=== PATIENT | male | born 1930 | race Caucasian/White ===

== ENCOUNTER 2016-10-17 20:42 | Emergency (ER) | payer MEDICARE, BC ==
--- NOTE | 2016-10-17 20:56 | ER Document Report ---
ED Medical Screen (RME) - General Stated Complaint: FALL BACK PAIN Mode of Arrival: Medic Information source: Emergency Med Personnel Notes: Patient presents to the emergency department after falling down 5 carpeted stairs 1 hour ago. No change in LOC. Abrasion to top of scalp, behind ear, left elbow. Reports right rib pain. Denies vomiting. I have greeted and performed a rapid initial assessment of this patient. A comprehensive ED assessment and evaluation of the patient, analysis of test results and completion of the medical decision making process will be conducted by additional ED providers. TRAVEL OUTSIDE OF THE [place] IN LAST 30 DAYS: No - Related Data Allergies/Adverse Reactions: erythromycin base [From Erythrocin] Allergy (Verified 06/11/16 08:39) rash Efcicuw-Kzb-Cqu Reductase Inhibitor Adverse Reaction (Intermediate, Verified 11/22 14:36) Stiffness in joints Past Medical History - Past Medical History Cardiac Medical History: Reports: Hx Coronary Artery Disease, Hx Hypertension Denies: Hx DVT, Hx Heart Attack, Hx Hypercholesterolemia, Hx Peripheral Vascular Disease, Hx Pulmonary Embolism Pulmonary Medical History: Denies: Hx Asthma, Hx COPD Neurological Medical History: Denies: Hx Cerebrovascular Accident, Hx Seizures Endocrine Medical History: Denies: Hx Diabetes Mellitus Type 1, Hx Diabetes Mellitus Type 2, Hx Hyperthyroidism, Hx Hypothyroidism Malignancy Medical History: Reports Hx Prostate Cancer - Radiation treatment in past GI Medical History: Reports: Hx Gastroesophageal Reflux Disease. Denies: Hx Cirrhosis, Hx Hepatitis, Hx Hiatal Hernia, Hx Ulcer Musculoskeltal Medical History: Denies Hx Arthritis Psychiatric Medical History: Denies: Hx Depression Infectious Medical History: Denies: Hx Hepatitis Past Surgical History: Reports: Hx Coronary Artery Bypass Graft, Hx Open Heart Surgery - 7 BYPASS, Hx Tonsillectomy. Denies: Hx Pacemaker - Immunizations Hx Diphtheria, Pertussis, Tetanus Vaccination: Yes
[2016-10-17] MEDS ORDERED: MORPHINE SULFATE 10 MG/ML INJ IV ONE (22:41)
--- NOTE | 2016-10-17 22:46 | ER Document Report ---
ED General - General Chief Complaint: Fall Injury Stated Complaint: FALL BACK PAIN Mode of Arrival: Medic Information source: Patient, Relative Notes: 85 yr old male presents with complaints of fall down 5 steps of stairs striking his head , right chest wall and back. Pt denies any fevers or chills, denies any sob but admits it hurts ot take a deep breath. TRAVEL OUTSIDE OF THE [place] IN LAST 30 DAYS: No - HPI Onset: Just prior to arrival Onset/Duration: Sudden Quality of pain: Achy Severity: Mild Pain Level: 1 Associated symptoms: Body/muscle aches, Hurts to breath Exacerbated by: Deep breathing Relieved by: Denies Similar symptoms previously: Yes Recently seen / treated by doctor: Yes - Related Data Allergies/Adverse Reactions: erythromycin base [From Erythrocin] Allergy (Verified 06/11/16 08:39) rash Zkouubh-Qck-Mgg Reductase Inhibitor Adverse Reaction (Intermediate, Verified 11/22 14:36) Stiffness in joints Past Medical History - General Information source: Emergency Med Personnel - Social History Smoking Status: Never Smoker Cigarette use (# per day): No Chew tobacco use (# tins/day): No Smoking Education Provided: No Frequency of alcohol use: None Drug Abuse: None Family History: Reviewed & Not Pertinent Patient has suicidal ideation: No Patient has homicidal ideation: No - Past Medical History Cardiac Medical History: Reports: Hx Coronary Artery Disease, Hx Hypertension Denies: Hx DVT, Hx Heart Attack, Hx Hypercholesterolemia, Hx Peripheral Vascular Disease, Hx Pulmonary Embolism Pulmonary Medical History: Denies: Hx Asthma, Hx COPD Neurological Medical History: Denies: Hx Cerebrovascular Accident, Hx Seizures Endocrine Medical History: Denies: Hx Diabetes Mellitus Type 1, Hx Diabetes Mellitus Type 2, Hx Hyperthyroidism, Hx Hypothyroidism Renal/ Medical History: Denies: Hx Peritoneal Dialysis Malignancy Medical History: Reports Hx Prostate Cancer - Radiation treatment in past GI Medical History: Reports: Hx Gastroesophageal Reflux Disease. Denies: Hx Cirrhosis, Hx Hepatitis, Hx Hiatal Hernia, Hx Ulcer Musculoskeltal Medical History: Denies Hx Arthritis Psychiatric Medical History: Denies: Hx Depression Infectious Medical History: Denies: Hx Hepatitis Past Surgical History: Reports: Hx Coronary Artery Bypass Graft, Hx Open Heart Surgery - 7 BYPASS, Hx Tonsillectomy. Denies: Hx Pacemaker - Immunizations Hx Diphtheria, Pertussis, Tetanus Vaccination: Yes Hx Pneumococcal Vaccination: 05/09/13 Review of Systems - Review of Systems Notes: REVIEW OF SYSTEMS: CONSTITUTIONAL : Denies fever, chills, or sweats. Denies recent illness. EENT: Denies eye, ear, throat, or mouth pain or symptoms. Denies nasal or sinus congestion or discharge. Denies throat, tongue, or mouth swelling or difficulty swallowing. CARDIOVASCULAR: Denies chest pain. Denies palpitations or racing or irregular heart beat. Denies ankle edema. RESPIRATORY: Admits to pain with breathing GASTROINTESTINAL: Denies abdominal pain or distention. Denies nausea, vomiting , or diarrhea. Denies blood in vomitus, stools, or per rectum. Denies black, tarry stools. Denies constipation. GENITOURINARY: Denies difficulty urinating, painful urination, burning, frequency, blood in urine, or discharge. MUSCULOSKELETAL: Denies back or neck pain or stiffness. Denies joint pain or swelling. SKIN: Denies rash, lesions or sores. HEMATOLOGIC : Denies easy bruising or bleeding. LYMPHATIC: Denies swollen, enlarged glands. NEUROLOGICAL: Denies confusion or altered mental status. Denies passing out or loss of consciousness. Denies dizziness or lightheadedness. Denies headache. Denies weakness or paralysis or loss of use of either side. Denies problems with gait or speech. Denies sensory loss, numbness, or tingling. Denies seizures. PSYCHIATRIC: Denies anxiety or stress. Denies depression, suicidal ideation, or homicidal ideation. ALL OTHER SYSTEMS REVIEWED AND NEGATIVE. Dictation was performed using [employer] voice recognition software PHYSICAL EXAMINATION: GENERAL: Well-appearing, well-nourished and in no acute distress. C collar in place. On backboard. GCS 15 HEAD abrasions to scalp and right posterior auricular EYES: Pupils equal round and reactive to light, extraocular movements intact, sclera anicteric, conjunctiva are normal. ENT: Nares patent, oropharynx clear without exudates. Moist mucous membranes. No hemanotympanum . No blood in nares. No dental fracture NECK: Normal range of motion, supple without lymphadenopathy. Trachea midline LUNGS: Breath sounds clear to auscultation bilaterally and equal. No wheezes rales or rhonchi. Tenderness on palpation of the right posterior rib brown 4 through 12 HEART: Regular rate and rhythm without murmurs. Pulses intact all throughout. ABDOMEN: Soft, nontender, nondistended abdomen. No guarding, no rebound. No masses appreciated. Musculoskeletal: Normal range of motion, no pitting or edema. No cyanosis. Hip non tender, stable. NEUROLOGICAL: Cranial nerves grossly intact. Normal speech, normal gait. Normal sensory, motor, and reflex exams. PSYCH: Normal mood, normal affect. SKIN: Warm, No active bleeding Physical Exam - Vital signs Vitals: Temp Pulse Resp BP Pulse Ox 98.7 F 64 20 172/75 H 98 10/17/16 20:52 10/17/16 20:52 10/17/16 20:52 10/17/16 20:52 10/17/16 20:52 Course - Re-evaluation Re-evalutation: 10/17/16 22:45 Given the patient multiple rib fractures, I did contact [facility] for a trauma transfer, patient was accepted by Dr. Nagy CT has been ordered to evaluate for any other injuries - Vital Signs Vital signs: Temp Pulse Resp BP Pulse Ox 98.7 F 64 20 172/75 H 98 10/17/16 20:52 10/17/16 20:52 10/17/16 20:52 10/17/16 20:52 10/17/16 20:52 - Diagnostic Test Radiology reviewed: Image reviewed, Reports reviewed - Report given to patient Critical Care Note - Critical Care Note Total time excluding time spent on procedures (mins): 34 Comments: 34 minutes of critical care time spent in direct contact evaluating and reevaluating the patient, treating symptoms, reviewing labs and studies and speaking with family and consultants excluding any procedures Discharge - Discharge Clinical Impression: Prostate cancer metastatic to bone, Multiple rib fractures involving four or more ribs Condition: Stable Disposition: [facility]
[2016-10-17 23:45] LABS: ABSOLUTE EOSINOPHILS # (AUTO) 0.1 10^3/uL (0.0-0.6); ABSOLUTE LYMPHOCYTES (AUTO) 2.4 10^3/uL (0.5-4.7); ABSOLUTE NEUT (AUTO) 11.5 10^3/uL (1.7-8.2); BASOPHILS % (AUTO) 0.2 % (0-2); EOSINOPHILS % (AUTO) 0.9 % (0-6); HEMATOCRIT 39.7 % (37.9-51.0); HEMOGLOBIN 13.2 g/dL (13.5-17.0); HGB HCT DIFFERENCE -0.1; LYMPHOCYTES % (AUTO) 15.7 % (13-45); MEAN CORPUSCULAR HEMOGLOBIN 30.4 pg (27.0-33.4); MEAN CORPUSCULAR HGB CONC 33.3 g/dL (32.0-36.0); MEAN CORPUSCULAR VOLUME 91 fl (80-97); MONOCYTES % (AUTO) 6.5 % (3-13); RED BLOOD COUNT 4.35 10^6/uL (4.35-5.55); RED CELL DISTRIBUTION WIDTH 14.1 % (11.5-14.0); SEGMENTED NEUTROPHILS % (AUTO) 76.7 % (42-78)
[2016-10-17 23:48] LABS: ALANINE AMINOTRANSFERASE 32 U/L (21-72); ALBUMIN 4.6 g/dL (3.5-5.0); ALKALINE PHOSPHATASE 47 U/L (38-126); ANION GAP 10 (5-19); ASPARTATE AMINO TRANSFERASE 30 U/L (17-59); BILIRUBIN,TOTAL 0.6 mg/dL (0.2-1.3); BLOOD UREA NITROGEN 16 mg/dL (7-20); CARBON DIOXIDE 30 mmol/L (22-30); CHLORIDE 101 mmol/L (98-107); CREATININE RESULT 0.84 mg/dL (0.52-1.25); GLUCOSE 165 mg/dL (75-110); POTASSIUM 4.8 mmol/L (3.6-5.0); SODIUM 141.3 mmol/L (137-145); TOTAL PROTEIN 7.5 g/dL (6.3-8.2)
[2016-10-18] MEDS ORDERED: METOPROLOL SUCCINATE 25 MG TAB.SR.24H PO ONE (00:34)
[2016-10-18 03:05] VITALS: BP 170/65
== END 2016-10-18 03:10 | disposition short-term general hospital (02) ==
LOC: ER 20:42
DX: C61 Malignant neoplasm of prostate (principal); C79.51 Secondary malignant neoplasm of bone; S22.49XA Multiple fractures of ribs, unspecified side, initial encounter for closed fracture; M54.9 Dorsalgia, unspecified; M79.1 Myalgia; R06.00 Dyspnea, unspecified; W10.9XXA Fall (on) (from) unspecified stairs and steps, initial encounter; I25.10 Atherosclerotic heart disease of native coronary artery without angina pectoris; I10 Essential (primary) hypertension; K21.9 Gastro-esophageal reflux disease without esophagitis; Z95.1 Presence of aortocoronary bypass graft; Z88.3 Allergy status to other anti-infective agents
CPT/HCPCS: 99291; 96374; 36415; 85025; 80053; 73502; 71101; 70450; 71260; 72125; 74177; J2270; A9270

== ENCOUNTER 2017-11-02 14:11 | Emergency (ER) | payer MEDICARE, BC ==
--- NOTE | 2017-11-02 14:51 | ER Document Report ---
ED Dizziness/Weakness - General Mode of Arrival: Medic Information source: Patient, Friend TRAVEL OUTSIDE OF THE [place] IN LAST 30 DAYS: No <DOREEN MICHAUD - Last Filed: 11/03/17 00:01> <EMMANUEL PACHECO - Last Filed: 11/03/17 00:30> - General Chief Complaint: Weakness Stated Complaint: WEAKNESS Time Seen by Provider: 11/02/17 14:23 Notes: Patient is an 86 year old male with a history of prostate cancer and anemia presents to the emergency department via EMS complaining of multiple symptoms including weakness, lower abdominal pain, dysuria, and bilateral lower extremity swelling. Patient states that he feels like he has absolutely no energy which is abnormal for him. Patient also states that he has been unable to urinate. Patient further states when he was able to use the restroom, he had a burning sensation and urinated around 4-5 ounces of blood. Patient abdominal pain is exacerbated with sitting up. Patient denies chest pain, shortness of breath, nausea, vomiting, or diarrhea. Patient states his last radiation treatment was 1 month ago and does not remember his last chemo treatment. Patient's PCP is Dr. Mancera in [place] and his oncologist is Dr. Luna at [facility]. (DOREEN MICHAUD) - Related Data Allergies/Adverse Reactions: erythromycin base [From Erythrocin] Allergy (Verified 06/11/16 08:39) rash Kdmjceb-Alg-Gsx Reductase Inhibitor Adverse Reaction (Intermediate, Verified 11/22 14:36) Stiffness in joints Past Medical History - General Information source: Patient, Friend - Social History Smoking Status: Unknown if Ever Smoked Family History: Reviewed & Not Pertinent - Past Medical History Cardiac Medical History: Reports: Hx Coronary Artery Disease, Hx Hypertension Malignancy Medical History: Reports Hx Prostate Cancer - Radiation treatment in past GI Medical History: Reports: Hx Gastroesophageal Reflux Disease Past Surgical History: Reports: Hx Coronary Artery Bypass Graft, Hx Open Heart Surgery - 7 BYPASS, Hx Tonsillectomy - Immunizations Hx Diphtheria, Pertussis, Tetanus Vaccination: Yes Hx Pneumococcal Vaccination: 05/09/13 <DOREEN MICHAUD - Last Filed: 11/03/17 00:01> Review of Systems - Review of Systems Constitutional: See HPI, Weakness EENT: No symptoms reported Cardiovascular: No symptoms reported Respiratory: No symptoms reported Gastrointestinal: See HPI Genitourinary: See HPI, Burning, Dysuria, Retention Male Genitourinary: No symptoms reported Musculoskeletal: No symptoms reported Skin: No symptoms reported Hematologic/Lymphatic: No symptoms reported Neurological/Psychological: No symptoms reported -: Yes All other systems reviewed and negative <DOREEN MICHAUD - Last Filed: 11/03/17 00:01> - Vital signs Vitals: Resp 19 11/02/17 14:33 - Notes Notes: GENERAL: Eyes closed when walking into the room, awakens, questions easily. Appears fatigued. HEAD: Normocephalic, atraumatic. EYES: Pupils equal, round, and reactive to light. Extraocular movements intact. ENT: Oral mucosa moist, tongue midline. NECK: Full range of motion. Supple. Trachea midline. LUNGS: Rales [address] up lung zones. No respiratory distress. HEART: 2/6 systolic murmur. Regular rate and rhythm. No gallops or rubs. ABDOMEN: Soft, non-tender. Distended lower abdomen which is tender to palpation , consistent with urinary retention. Bowel sounds present in all 4 quadrants. EXTREMITIES: Moves all 4 extremities spontaneously. 4+ pitting edema to just below the knees, no exudate, no fluctuance. NEUROLOGICAL: Alert and oriented x3. Normal speech. PSYCH: Appears fatigued. SKIN: Pale, warm, dry normal turgor. (DOREEN MICHAUD) Course - Laboratory Result Diagrams: 11/02/17 14:26 11/02/17 14:26 <DOREEN MICHAUD - Last Filed: 11/03/17 00:01> - Laboratory Result Diagrams: 11/02/17 14:26 11/02/17 14:26 <EMMANUEL PACHECO - Last Filed: 11/03/17 00:30> - Re-evaluation Re-evalutation: 11/02/17 18:24 patient had distended urinary bladder which was relieved by insertion of a Villanueva catheter, there was some difficulty in placing the catheter, initially bloody urine with some clots came out and urine is now starting to clear, abdominal distention has resolved, patient feels much better, looks much more comfortable. CBC shows anemia with hemoglobin of 8.7, no leukocytosis, INR somewhat prolonged at 1.12 and PTT is elevated at 44.1, chemistries grossly unremarkable, proBNP elevated at 1040 however he is not acutely short of breath , complaining of any chest pain, chest x-ray shows no pulmonary edema and he is not hypoxic. Cardiac enzymes negative, urinalysis shows large blood, 1+ bacteria, 8 WBCs. Urinalysis appears more consistent with colonization rather than infection. Discussed with patient that he has a follow-up appointment with his urologist tomorrow, there is some sign of fluid overload though no overt heart failure at this time. Patient will be given a small dose of Lasix here through the IV and then sent home on Lasix 20 mg once a day for the next week, he is to weigh himself daily and follow-up with his primary care physician within a week. Return to the emergency department for increase in blood in the Villanueva catheter, increasing fatigue or any new or concerning symptoms. Patient and family members at bedside are agreeable to this plan. Patient aware that should his bleeding continue or worsen he may need a blood transfusion. (EMMANUEL PACHECO) - Vital Signs Vital signs: Temp Pulse Resp BP Pulse Ox 98.0 F 21 H 131/49 H 97 11/02/17 18:51 11/02/17 18:01 11/02/17 18:01 11/02/17 18:01 - Laboratory Laboratory results interpreted by me: 11/02/17 11/02/17 11/02/17 14:26 14:26 14:26 RBC 2.86 L Hgb 8.7 L Hct 25.8 L RDW 14.8 H APTT 44.1 H Sodium 135.1 L BUN 25 H Glucose 146 H NT-Pro-B Natriuret Pep Urine Protein Urine Blood Urine Ascorbic Acid 11/02/17 11/02/17 14:26 15:46 RBC Hgb Hct RDW APTT Sodium BUN Glucose NT-Pro-B Natriuret Pep 1040 H Urine Protein 100 H Urine Blood LARGE H Urine Ascorbic Acid 40 H - EKG Interpretation by Me Additional EKG results interpreted by me: 11/02/17 18:25 EKG shows sinus rhythm rate 65, first-degree AV block, no ST segment elevations or depressions, nonspecific T-wave flattening in lead I, T-wave inversion in aVL and V2, 2 PVCs which are monomorphic per my interpretation. (EMMANUEL PACHECO) Discharge <DOREEN MICHAUD - Last Filed: 11/03/17 00:01> <EMMANUEL PACHECO - Last Filed: 11/03/17 00:30> - Discharge Clinical Impression: Acute urinary retention, Prostate cancer Anemia Qualifiers: Anemia type: unspecified type Qualified Code(s): D64.9 - Anemia, unspecified Hematuria Qualifiers: Hematuria type: gross Qualified Code(s): R31.0 - Gross hematuria Fluid overload Qualifiers: Hypervolemia type: unspecified Qualified Code(s): E87.70 - Fluid overload, unspecified Condition: Stable Disposition: HOME, SELF-CARE Additional Instructions: Please leave a Villanueva catheter in until you have been seen by your urologist. If you start developing large amounts of blood coming out of the catheter again please return to the emergency department. I have started you on a medication called Lasix also known as furosemide, this will help you to hopefully urinate off some of the fluid that you have been building up in your legs and the small amount of fluid that is in your lungs. Please return to the emergency department should you develop chest pain, shortness of breath, increasing weakness or any new or concerning symptoms. Please weigh yourself every day and write this down, please talk to your primary care physician about how you feel after starting the Lasix and watch her weights have been. Prescriptions: Furosemide [Lasix 20 mg Tablet] 20 mg PO QAM #7 tablet Referrals: RAQUEL MANCERA MD [Primary Care Provider] - Follow up in 1 week Scribe Attestation: 11/03/17 00:29 I personally performed the services described in the documentation, reviewed and edited the documentation which was dictated to the scribe in my presence, and it accurately records my words and actions. (EMMANUEL PACHECO) Scribe Documentation - Scribe Written by Derek:: Derek Conrad, 11/02/2017 14:56 acting as scribe for :: Silvestre <DOREEN MICHAUD - Last Filed: 11/03/17 00:01>
[2017-11-02] MEDS ORDERED: LIDOCAINE 2% URO-JET 5 ML KIT MM ONE (14:56)
[2017-11-02 15:36] LABS: ABSOLUTE EOSINOPHILS # (AUTO) 0.1 10^3/uL (0.0-0.6); ABSOLUTE MONOCYTES (AUTO) 0.7 10^3/uL (0.1-1.4); ABSOLUTE NEUT (AUTO) 5.8 10^3/uL (1.7-8.2); BASOPHILS % (AUTO) 0.2 % (0-2); EOSINOPHILS % (AUTO) 1.5 % (0-6); HEMATOCRIT 25.8 % (37.9-51.0); HEMOGLOBIN 8.7 g/dL (13.5-17.0); INTERNATIONAL RATION (INR) 1.12; LYMPHOCYTES % (AUTO) 13.4 % (13-45); MEAN CORPUSCULAR HEMOGLOBIN 30.4 pg (27.0-33.4); MEAN CORPUSCULAR HGB CONC 33.7 g/dL (32.0-36.0); MEAN CORPUSCULAR VOLUME 90 fl (80-97); PLATELET COUNT 205 10^3/uL (150-450); PROTHROMBIN TIME 15.2 SEC (11.4-15.4); RED BLOOD COUNT 2.86 10^6/uL (4.35-5.55); RED CELL DISTRIBUTION WIDTH 14.8 % (11.5-14.0); SEGMENTED NEUTROPHILS % (AUTO) 75.9 % (42-78); TOTAL CELLS COUNTED % (AUTO) 100 %; WHITE BLOOD COUNT 7.7 10^3/uL (4.0-10.5)
[2017-11-02 15:37] LABS: ALANINE AMINOTRANSFERASE 24 U/L (21-72); ALBUMIN 3.8 g/dL (3.5-5.0); ALKALINE PHOSPHATASE 123 U/L (38-126); ANION GAP 8 (5-19); ASPARTATE AMINO TRANSFERASE 55 U/L (17-59); BILIRUBIN,DIRECT 0.4 mg/dL (0.0-0.4); BILIRUBIN,TOTAL 0.4 mg/dL (0.2-1.3); BLOOD UREA NITROGEN 25 mg/dL (7-20); CALCIUM 8.6 mg/dL (8.4-10.2); CARBON DIOXIDE 27 mmol/L (22-30); CHLORIDE 100 mmol/L (98-107); CREATINE KINASE 165 U/L (55-170); GLUCOSE 146 mg/dL (75-110); PARTIAL THROMBOPLASTIN TIME 44.1 SEC (23.5-35.8); POTASSIUM 4.9 mmol/L (3.6-5.0); SODIUM 135.1 mmol/L (137-145); TOTAL PROTEIN 6.4 g/dL (6.3-8.2)
[2017-11-02 15:48] LABS: CREATINE KINASE MB 1.87 ng/mL (<4.55); NT PRO BNP 1040 pg/mL (<450)
[2017-11-02 15:49] LABS: TROPONIN I < 0.012 ng/mL
--- NOTE | 2017-11-02 15:51 | RADIOLOGY REPORT (SQ) ---
EXAM DESCRIPTION: CHEST PA/LAT COMPLETED DATE/TIME: 11/02/2017 3:31 pm REASON FOR STUDY: crackles, rales, suspect pulmonary edema COMPARISON: 06/10/2016 EXAM PARAMETERS: NUMBER OF VIEWS: two views TECHNIQUE: Digital Frontal and Lateral radiographic views of the chest acquired. RADIATION DOSE: NA LIMITATIONS: none FINDINGS: LUNGS AND PLEURA: No opacities, masses or pneumothorax. No pleural effusion. MEDIASTINUM AND HILAR STRUCTURES: No masses or contour abnormalities. HEART AND VASCULAR STRUCTURES: Heart normal size. No evidence for failure. BONES: Old right posterior rib fractures. HARDWARE: CABG. OTHER: No other significant finding. IMPRESSION: NO ACUTE RADIOGRAPHIC FINDING IN THE CHEST. TECHNICAL DOCUMENTATION: JOB ID: [id number] [employer]- All Rights Reserved Reading location - IP/workstation name: [email or web address]
[2017-11-02 16:28] LABS: AMORPHOUS SEDIMENT,URINE TRACE /HPF; APPEARANCE,URINE SLIGHTLY-CLOUDY; BILIRUBIN,URINE NEGATIVE (NEGATIVE); COLOR,URINE AMBER; GLUCOSE, URINE NEGATIVE (NEGATIVE); KETONES,URINE NEGATIVE (NEGATIVE); LEUKOCYTE ESTERASE,URINE NEGATIVE (NEGATIVE); NITRITE,URINE NEGATIVE (NEGATIVE); PROTEIN,URINE 100 mg/dL (NEGATIVE); UROBILINOGEN,URINE NEGATIVE mg/dL (<2.0)
--- NOTE | 2017-11-02 17:24 | EKG REPORT ---
SEVERITY:- ABNORMAL ECG - SINUS RHYTHM MULTIPLE VENTRICULAR PREMATURE COMPLEXES FIRST DEGREE AV BLOCK BORDERLINE T ABNORMALITIES, ANT-LAT LEADS : Confirmed by: Guillermo Garcia MD 02-Nov-2017 17:24:09
[2017-11-02] MEDS ORDERED: FUROSEMIDE INJ/PF 20 MG/2 ML SDV IV ONE (18:09)
[2017-11-02 18:36] VITALS: BP 131/49
== END 2017-11-02 19:01 | disposition home or self-care (01) ==
LOC: ER 14:11
DX: C61 Malignant neoplasm of prostate (principal); R33.9 Retention of urine, unspecified; D64.9 Anemia, unspecified; R53.1 Weakness; R10.30 Lower abdominal pain, unspecified; R30.0 Dysuria; M79.89 Other specified soft tissue disorders; R31.0 Gross hematuria; E87.70 Fluid overload, unspecified; I44.0 Atrioventricular block, first degree; I49.3 Ventricular premature depolarization; I25.10 Atherosclerotic heart disease of native coronary artery without angina pectoris; I10 Essential (primary) hypertension; Z95.1 Presence of aortocoronary bypass graft; Z88.1 Allergy status to other antibiotic agents
CPT/HCPCS: 93005; 99285; 51702; 96374; 36415; 87086; 82553; 82550; 85025; 85610; 85730; 80053; 81001; 84484; 83880; 71046; 93010; J1940

== ENCOUNTER 2017-12-11 11:33 | Emergency (ER) | payer MEDICARE, BC ==
--- NOTE | 2017-12-11 12:17 | ER Document Report ---
ED GI/ - General Chief Complaint: Problem with Urinary Catheter Stated Complaint: CATHETER ISSUES Time Seen by Provider: 12/11/17 11:54 Notes: 87-year-old male to emergency department chief complaint of urinary obstruction. Has Villanueva catheter in place. Had a change last night and has not been able to urinate since that time. Has been complaining of pain since the catheter was replaced by home health nurse. Patient suffers from metastatic prostate cancer on hospice. The patient denies any other complaints at this time. TRAVEL OUTSIDE OF THE [place] IN LAST 30 DAYS: No - HPI Patient complains to provider of: Dysuria, Urinary retention Onset: Yesterday - Related Data Allergies/Adverse Reactions: erythromycin base [From Erythrocin] Allergy (Verified 12/11/17 11:36) rash Fcjxwms-Ibu-Ubu Reductase Inhibitor Adverse Reaction (Intermediate, Verified 12/24 11:36) Stiffness in joints Past Medical History - General Information source: Patient, [facility] Records - Social History Smoking Status: Never Smoker Cigarette use (# per day): No Frequency of alcohol use: None Drug Abuse: None Lives with: Family Family History: Reviewed & Not Pertinent - Past Medical History Cardiac Medical History: Reports: Hx Coronary Artery Disease, Hx Hypertension Denies: Hx DVT, Hx Heart Attack, Hx Hypercholesterolemia, Hx Peripheral Vascular Disease, Hx Pulmonary Embolism Pulmonary Medical History: Denies: Hx Asthma, Hx COPD Neurological Medical History: Denies: Hx Cerebrovascular Accident, Hx Seizures Endocrine Medical History: Denies: Hx Diabetes Mellitus Type 1, Hx Diabetes Mellitus Type 2, Hx Hyperthyroidism, Hx Hypothyroidism Renal/ Medical History: Denies: Hx Peritoneal Dialysis Malignancy Medical History: Reports Hx Prostate Cancer - Radiation treatment in past GI Medical History: Reports: Hx Gastroesophageal Reflux Disease. Denies: Hx Cirrhosis, Hx Hepatitis, Hx Hiatal Hernia, Hx Ulcer Musculoskeltal Medical History: Denies Hx Arthritis Psychiatric Medical History: Denies: Hx Depression Infectious Medical History: Denies: Hx Hepatitis Past Surgical History: Reports: Hx Coronary Artery Bypass Graft, Hx Open Heart Surgery - 7 BYPASS, Hx Tonsillectomy. Denies: Hx Pacemaker - Immunizations Hx Diphtheria, Pertussis, Tetanus Vaccination: Yes Hx Pneumococcal Vaccination: 05/09/13 Review of Systems - Review of Systems Constitutional: denies: Fever, Malaise, Weakness Cardiovascular: denies: Chest pain, Palpitations, Heart racing Respiratory: denies: Cough, Hurts to breathe, Short of breath Gastrointestinal: denies: Abdominal pain, Diarrhea, Nausea Genitourinary: Retention, Other - Cannot urinate, suprapubic pain Male Genitourinary: See HPI Skin: denies: Dryness, Lesions, Lumps, Rash Neurological/Psychological: No symptoms reported Physical Exam - Vital signs Vitals: Temp Pulse Resp BP Pulse Ox 98.6 F 73 16 104/59 L 99 12/11/17 11:40 12/11/17 11:40 12/11/17 11:40 12/11/17 11:40 12/11/17 11:40 Interpretation: Normal - General General appearance: Appears well, Alert In distress: Mild - Abdominal Inspection: Normal Distension: No distension Bowel sounds: Normal Tenderness: Tender, Other - Suprapubic tenderness Organomegaly: No organomegaly - Genitourinary Inspection: Normal Notes: Villanueva catheter in place Course - Re-evaluation Re-evalutation: 12/11/17 13:28 Based on patient's complaint will reassess just the catheter. Likely in appropriate placement of the catheter. If this is unsuccessful we replace Villanueva. - Vital Signs Vital signs: Temp Pulse Resp BP Pulse Ox 98.6 F 73 16 104/59 L 99 12/11/17 11:40 12/11/17 11:40 12/11/17 11:40 12/11/17 11:40 12/11/17 11:40 Discharge - Discharge Clinical Impression: Acute urinary obstruction Condition: Good Disposition: HOME, SELF-CARE Instructions: Villanueva Catheter Care ([facility])
[2017-12-11 13:37] VITALS: BP 128/50
== END 2017-12-11 13:35 | disposition home or self-care (01) ==
LOC: ER 11:33
DX: C61 Malignant neoplasm of prostate (principal); N13.9 Obstructive and reflux uropathy, unspecified; C79.9 Secondary malignant neoplasm of unspecified site; T83.9XXA Unspecified complication of genitourinary prosthetic device, implant and graft, initial encounter; R33.9 Retention of urine, unspecified; I25.10 Atherosclerotic heart disease of native coronary artery without angina pectoris; I10 Essential (primary) hypertension; Z92.3 Personal history of irradiation
CPT/HCPCS: 99283